=== PATIENT | female | born 1965 | race African-American/Black ===

== ENCOUNTER 2021-10-29 14:15 | Observation (INO) ==
[2021-10-29 14:54] LABS: Basophils # 0.1 10*3/uL (0.0-0.2); Basophils % 1.1 % (0.0-0.8); Eosinophils % 13.5 % (0.00-10.9); Hemoglobin 11.5 GM/DL (12.0-16.0); Immature Granulocytes % 0.3 %; Immature Granulocytes Absolute 0.02 #; Lymphocytes % 39.5 % (21.3-54.2); Mean Corpuscular HGB Conc 31.1 GM/DL (32-36); Mean Corpuscular Volume 92.7 FL (87-102); Mean Platelet Volume 9.6 FL (9.6-12.0); Monocytes % 6.7 % (1.7-12.7); Neutrophils % 38.9 % (38.7-73.9); Platelet Count 375 T/CUMM (130-400); Red Blood Count 3.99 MC/CUMM (3.8-5.5); Red Cell Distribution Width 13.8 % (9.3-17.3); White Blood Count 7.5 T/CUMM (4-12)
[2021-10-29 15:14] LABS: Alanine Aminotransferase 20 U/L (13-56); Albumin 3.7 G/DL (3.4-5.0); Alkaline Phosphatase 83 U/L (45-117); Aspartate Amino Transferase 13 U/L (0-37); Bilirubin,Total < 0.39 MG/DL (0.20-1.00); Blood Urea Nitrogen 9 MG/DL (7-18); Calcium 9.1 MG/DL (8.5-10.1); Carbon Dioxide 30 MMOL/L (21-32); Estimated Glom Filtration Rate 145 ML/MIN; Glucose 128 MG/DL (74-106); Osmolality,Calculated 281.3 MOS/KG (273-304); Potassium 3.6 MMOL/L (3.5-5.1); Sodium 141 MMOL/L (136-145); Total Protein 8.5 G/DL (6.4-8.2)
[2021-10-29 15:39] LABS: Anisocytosis Slight; Eosinophils 19 % (0-10); Hypochromia Slight; Lymphocytes 32 % (20-55); Macrocytosis Slight; Microcytosis Slight; Platelet Estimate Normal; Polychromasia Slight; Segmented Neutrophils 43 % (50-85); Total Cells Counted 100
[2021-10-29] MEDS ORDERED: ALBUTEROL NEB SOLN 5 MG/ML 20 ML/BOTTLE CONT NEB STA ×2 (18:23→19:50)
[2021-10-29] MEDS ORDERED: FUROSEMIDE 40 MG/4 ML VIAL IV STA (18:23)
[2021-10-29] MEDS ORDERED: methylPREDNISolone SOD SUC 125 MG/2 ML VIAL IV STA (19:50)
[2021-10-29] MEDS ORDERED: ONDANSETRON 4 MG/2 ML VIAL IV PRN (21:59)
[2021-10-29] MEDS ORDERED: ACETAMINOPHEN 325 MG TABLET PO PRN (21:59)
[2021-10-29] MEDS: ENOXAPARIN 40 MG/0.4 ML SYRINGE SUBCUT SCH (23:15)
[2021-10-29] MEDS: MONTELUKAST 10 MG TABLET PO SCH (23:17)
[2021-10-30] MEDS ORDERED: methylPREDNISolone SOD SUC 125 MG/2 ML VIAL IV SCH (03:00)
[2021-10-30 04:12] LABS: Basophils % 0.1 % (0.0-0.8); Eosinophils % 0.2 % (0.00-10.9); Hematocrit 36.3 VOL% (35.7-47.0); Hemoglobin 11.3 GM/DL (12.0-16.0); Immature Granulocytes % 0.5 %; Immature Granulocytes Absolute 0.04 #; Lymphocytes # 0.8 10*3/uL (1.4-4.0); Mean Corpuscular HGB Conc 31.1 GM/DL (32-36); Mean Corpuscular Volume 92.6 FL (87-102); Mean Platelet Volume 9.8 FL (9.6-12.0); Monocytes % 0.7 % (1.7-12.7); Neutrophils % 89.5 % (38.7-73.9); Platelet Count 360 T/CUMM (130-400); Red Blood Count 3.92 MC/CUMM (3.8-5.5); Red Cell Distribution Width 13.9 % (9.3-17.3); White Blood Count 8.6 T/CUMM (4-12)
[2021-10-30 04:37] LABS: Calcium 8.7 MG/DL (8.5-10.1); Osmolality,Calculated 282.4 MOS/KG (273-304); Potassium 3.7 MMOL/L (3.5-5.1)
[2021-10-30] MEDS: ALBUTEROL 2.5 MG/3 ML NEB RESP TX SCH ×4 (05:16→19:19)
[2021-10-30] MEDS: methylPREDNISolone SOD SUC 125 MG/2 ML VIAL IV SCH ×3 (08:56→20:46)
[2021-10-30] MEDS ORDERED: BUDESONIDE/FORMOTEROL 160-4.5 INHALER 6 GM INH SCH (09:00)
[2021-10-30] MEDS: PANTOPRAZOLE 40 MG TABLET PO SCH (09:01)
[2021-10-30] MEDS: ADVAIR INH SCH ×2 (09:30→20:54)
[2021-10-30] MEDS ORDERED: cefTRIAXone 1,000 MG VIAL ONE (11:02)
[2021-10-30] MEDS: cefTRIAXone 1,000 MG in SODIUM CHLORIDE 0.9% 100 ML IV SCH (11:06)
[2021-10-30] MEDS: AZITHROMYCIN INJ 500 MG in SODIUM CHLORIDE 0.9% 250 ML IV SCH (12:40)
[2021-10-30] MEDS: MONTELUKAST 10 MG TABLET PO SCH (20:53)
[2021-10-30] MEDS ORDERED: MONTELUKAST 10 MG TABLET PO SCH (21:00)
[2021-10-30] MEDS: METOPROLOL SUCCINATE XL 100 MG TABLET PO SCH (22:44)
[2021-10-30] MEDS: lisinopriL 20 MG TABLET PO SCH (22:44)
[2021-10-30] MEDS: ENOXAPARIN 40 MG/0.4 ML SYRINGE SUBCUT SCH (22:45)
[2021-10-31] MEDS: ALBUTEROL 2.5 MG/3 ML NEB RESP TX SCH ×2 (00:48→07:44)
[2021-10-31] MEDS: methylPREDNISolone SOD SUC 125 MG/2 ML VIAL IV SCH (03:10)
[2021-10-31 05:19] LABS: Basophils % 0.1 % (0.0-0.8); Hematocrit 34.3 VOL% (35.7-47.0); Immature Granulocytes % 0.9 %; Immature Granulocytes Absolute 0.15 #; Lymphocytes # 1.1 10*3/uL (1.4-4.0); Lymphocytes % 6.3 % (21.3-54.2); Mean Corpuscular HGB Conc 32.1 GM/DL (32-36); Mean Platelet Volume 9.7 FL (9.6-12.0); Monocytes % 1.9 % (1.7-12.7); Neutrophils % 90.8 % (38.7-73.9); Platelet Count 349 T/CUMM (130-400); Red Blood Count 3.77 MC/CUMM (3.8-5.5); Red Cell Distribution Width 14.1 % (9.3-17.3); White Blood Count 17.5 T/CUMM (4-12)
[2021-10-31 05:41] LABS: Hypochromia 1+; Lymphocytes 6 % (20-55); Microcytosis Slight; Segmented Neutrophils 94 % (50-85); Total Cells Counted 100
[2021-10-31 05:42] LABS: Platelet Estimate Normal
[2021-10-31 05:44] LABS: Calcium 9.2 MG/DL (8.5-10.1); Osmolality,Calculated 282.4 MOS/KG (273-304); Potassium 3.8 MMOL/L (3.5-5.1)
[2021-10-31 07:08] VITALS: BP 124/68
[2021-10-31] MEDS: lisinopriL 20 MG TABLET PO SCH (08:35)
[2021-10-31] MEDS: PANTOPRAZOLE 40 MG TABLET PO SCH (08:36)
[2021-10-31] MEDS: METOPROLOL SUCCINATE XL 100 MG TABLET PO SCH (08:36)
[2021-10-31] MEDS ORDERED: FUROSEMIDE 20 MG TABLET PO SCH (09:00)
[2021-10-31] MEDS ORDERED: POTASSIUM CHLORIDE 20 MEQ TABLET PO SCH (09:00)
[2021-10-31] MEDS ORDERED: amLODIPine 10 MG TABLET PO SCH (09:00)
[2021-10-31] MEDS ORDERED: methylPREDNISolone SOD SUC 40 MG/1 ML VIAL IV SCH (10:30)
[2021-10-31] MEDS: cefTRIAXone 1,000 MG in SODIUM CHLORIDE 0.9% 100 ML IV SCH (11:01)
[2021-10-31] MEDS: AZITHROMYCIN INJ 500 MG in SODIUM CHLORIDE 0.9% 250 ML IV SCH (11:36)
== END 2021-10-31 12:00 | disposition home or self-care (01) ==
LOC: N.ED 14:15 → N.EDINP 14:15 → SUATTDRO 21:59 → N.OB 10-30 16:28
PROVIDERS: ADMIT Hospitalist; ATTEND Internal Medicine